=== PATIENT | female | born 1930 | race Caucasian/White ===

== ENCOUNTER → 2017-08-25 | Outpatient (CLI) | payer MEDICARE, BC ==
--- NOTE | 2017-08-25 15:58 | RAD ---
Sonography of the left groin Clinical indications: Left groin lump. FINDINGS: High-resolution sonography of the left groin lump was performed. There is a cystic area or fluid collection which is nonvascular. It measures 3.4 cm x 3.2 cm x 1.1 cm in size. IMPRESSION: Cyst or fluid collection or abscess within the left groin. Electronically signed by: Erasmo Govea MD (08/25/2017 3:55 PM) [id number]
== END | disposition home or self-care (01) ==
LOC: US 07:56
PROVIDERS: ATTEND Family Medicine
DX: N39.498 Other specified urinary incontinence (principal); K40.30 Unilateral inguinal hernia, with obstruction, without gangrene, not specified as recurrent
CPT/HCPCS: 76705